=== PATIENT | male | born 1970 | race Caucasian/White ===

== ENCOUNTER 2016-05-03 18:24 | Observation (INO) | payer SELFPAY ==
[~2016-05-03 18:24] MED LIST: NAPR550 PO; PENI500T PO; Z.0.NO CURRENT MEDS
[2016-05-03 18:26] VITALS: BP 126/76; PULSE 72; RESP 15; TEMP 98.2; O2SAT 98
[2016-05-03 19:15] LABS: MEAN CORPUSCULAR HGB CONC 36.2 % (32.0-36.0)
[2016-05-03] MEDS ORDERED: SODIUM CHLORIDE 0.9% FLUSH 10 ML FLUSH IVF PRN (19:15)
[2016-05-03 19:57] VITALS: O2SAT 97
--- NOTE | 2016-05-03 20:08 | PD ---
HPI Chief Complaint: Chest Pain Time Seen by Provider: 20:08 Travel History International Travel<30 days: No Contact w/Intl Traveler<30days: No Traveled to known affect area: No History of Present Illness HPI 45-year-old male presents to the emergency department for evaluation of left anterior chest pain for 2 weeks. Patient states that the pain was intermittent for the past week and a half. States that it became more persistent and 5 days ago he was seen at [facility] for the chest pain. States he had an x-ray and lab work that they told him was negative and he was discharged from the emergency department. States that over the past 2 days he's had worsening constant left anterior chest pain. Describes it as a pressure but now he is also having a sharp pain. States that today while at work he was exerting himself by walking around and began to have crushing chest pain with associated lightheadedness, nausea and diaphoresis. States that when he rested these symptoms resolved. States that he still has the chest pain but it has greatly improved. Denies any history of heart disease or SC. He has never had a stress test or heart catheterization. He does have a smoking history of approximately 30 years. No other complaints. PFSH Past Medical History Medical History: Denies Significant Hx Diminished Hearing: No Immunizations Current: Yes Past Surgical History Surgical History: No Previous Surgery Social History Alcohol Use: No Tobacco Use: No Substance Use: No Allergies-Medications (Allergen,Severity, Reaction): Coded Allergies: No Known Allergies (Verified , 05/03/16) Reported Meds & Prescriptions Reported Meds & Active Scripts Active Review of Systems Except as stated in HPI: all other systems reviewed are Neg Physical Exam Narrative GENERAL: Well-nourished and well-developed pleasant patient in no acute distress who is nontoxic appearing. SKIN: Warm and dry. HEAD: Normocephalic and atraumatic. EYES: No injection, drainage, or hyphema noted. PERRLA. EOMI. ENT: No nasal drainage noted. Oropharynx is clear. NECK: Supple and the trachea is midline. CARDIOVASCULAR: Regular rate and rhythm. RESPIRATORY: Breath sounds are equal bilaterally with no accessory muscle use, wheezing, rhonchi, or crackles. GASTROINTESTINAL: Abdomen is soft, non-tender, and nondistended. MUSCULOSKELETAL: No obvious deformities, swelling, cyanosis, or ecchymosis is present throughout the upper and lower extremities. Patient has full range of motion without any signs of neurovascular compromise. NEUROLOGICAL: Awake, alert, and oriented. Normal speech and gait. Cranial nerves are grossly intact. Data Data Last Documented VS Vital Signs Date Time Temp Pulse Resp B/P Pulse Ox O2 Delivery O2 Flow Rate FiO2 05/03/16 20:27 72 15 128/84 05/03/16 19:57 97 Room Air 05/03/16 18:26 98.2 Orders Electrocardiogram (05/03/16 19:14) Ckmb (Isoenzyme) Profile (05/03/16 19:14) Complete Blood Count With Diff (05/03/16 19:14) Comprehensive Metabolic Panel (05/03/16 19:14) Magnesium (Mg) (05/03/16 19:14) Prothrombin Time / Inr (Pt) (05/03/16 19:14) Act Partial Throm Time (Ptt) (05/03/16 19:14) Troponin I (05/03/16 19:14) Chest, Single Ap (05/03/16 19:14) Ecg Monitoring (05/03/16 19:14) Bilateral Bp Monitoring (05/03/16 19:14) Iv Access Insert/Monitor (05/03/16 19:14) Oximetry (05/03/16 19:14) Sodium Chloride 0.9% Flush (Ns Flush) (05/03/16 19:15) Nitroglycerin Sl (Nitrostat Sl) (05/03/16 20:15) Admit Order (Ed Use Only) (05/03/16 20:48) Labs Laboratory Tests Test 05/03/16 19:35 White Blood Count 7.8 TH/MM3 Red Blood Count 4.41 MIL/MM3 Hemoglobin 14.7 GM/DL Hematocrit 40.5 % Mean Corpuscular Volume 91.9 FL Mean Corpuscular Hemoglobin 33.3 PG Mean Corpuscular Hemoglobin 36.2 % Concent Red Cell Distribution Width 13.5 % Platelet Count 183 TH/MM3 Mean Platelet Volume 8.7 FL Neutrophils (%) (Auto) 66.1 % Lymphocytes (%) (Auto) 22.6 % Monocytes (%) (Auto) 8.8 % Eosinophils (%) (Auto) 1.7 % Basophils (%) (Auto) 0.8 % Neutrophils # (Auto) 5.2 TH/MM3 Lymphocytes # (Auto) 1.8 TH/MM3 Monocytes # (Auto) 0.7 TH/MM3 Eosinophils # (Auto) 0.1 TH/MM3 Basophils # (Auto) 0.1 TH/MM3 CBC Comment DIFF FINAL Differential Comment Prothrombin Time 11.8 SEC Prothromb Time International 1.1 RATIO Ratio Activated Partial 28.2 SEC Thromboplast Time Sodium Level 140 MEQ/L Potassium Level 3.6 MEQ/L Chloride Level 107 MEQ/L Carbon Dioxide Level 24.4 MEQ/L Anion Gap 9 MEQ/L Blood Urea Nitrogen 16 MG/DL Creatinine 0.86 MG/DL Estimat Glomerular Filtration 95 ML/MIN Rate Random Glucose 130 MG/DL Calcium Level 8.8 MG/DL Magnesium Level 2.0 MG/DL Total Bilirubin 0.6 MG/DL Aspartate Amino Transf 54 U/L (AST/SGOT) Alanine Aminotransferase 112 U/L (ALT/SGPT) Alkaline Phosphatase 67 U/L Total Creatine Kinase 61 U/L Troponin I LESS THAN 0.02 NG/ML Total Protein 7.1 GM/DL Albumin 3.6 GM/DL [facility] Medical Decision Making Medical Screen Exam Complete: Yes Emergency Medical Condition: Yes Differential Diagnosis ACS versus chest wall pain versus pleurisy versus anxiety Narrative Course 45-year-old male presents to the emergency department for evaluation of chest pain. Patient is afebrile, vital signs are stable. Physical examination is essentially unremarkable. Patient is placed on cardiac telemetry and pulse oximetry monitoring. IV access is obtained, labs were drawn and sent. EKG shows normal sinus rhythm with no acute ST elevations or depressions. Patient took an aspirin 325 mg earlier today. He is administered nitroglycerin tablet sublingually for chest pain. CBC is unremarkable. CMP is unremarkable. Troponin is less than 0.02. Chest x-ray is negative for any Known allergies. Patient has a remained stable while here in the emergency department. Patient will be admitted to chest pain center for repeat cardiac enzymes, EKGs and possible stress testing. Diagnosis Primary Impression: Chest pain Qualified Code: R07.9 - Chest pain, unspecified type Admitting Information Admitting Physician Requests: Jackeline Miller May 03, 2016 20:08
[2016-05-03 20:10] LABS: AUTOMATED NEUTROPHIL # 5.2 TH/MM3 (1.8-7.7); BASOPHIL # 0.1 TH/MM3 (0-0.2); BASOPHIL % 0.8 % (0.0-2.0); EOSINOPHIL # 0.1 TH/MM3 (0-0.4); EOSINOPHIL % 1.7 % (0.0-4.0); HEMATOCRIT 40.5 % (39.0-51.0); LYMPH % 22.6 % (9.0-44.0); LYMPHOCYTE # 1.8 TH/MM3 (1.0-4.8); MEAN CELL VOLUME 91.9 FL (80.0-100.0); MEAN CORPUSCULAR HEMOGLOBIN 33.3 PG (27.0-34.0); MONO % 8.8 % (0.0-8.0); NEUT % 66.1 % (16.0-70.0); PLATELET COUNT 183 TH/MM3 (150-450); RED BLOOD COUNT 4.41 MIL/MM3 (4.50-5.90); RED CELL DISTRIBUTION WIDTH 13.5 % (11.6-17.2); WHITE BLOOD COUNT 7.8 TH/MM3 (4.0-11.0)
[2016-05-03] MEDS: NITROGLYCERIN 0.4 MG SL 25 TABS/BTL SL SCH ×2 (20:18→20:20)
[2016-05-03 20:23] LABS: APTT (PATIENT) 28.2 SEC (24.3-30.1); INTERNATIONAL NORMALIZED RATIO 1.1 RATIO; PROTHROMBIN TIME - PATIENT 11.8 SEC (9.8-11.6)
[2016-05-03 20:25] LABS: HEMO FLAGS DIFF FINAL
[2016-05-03 20:27] VITALS: BP 128/84; PULSE 72; RESP 15
[2016-05-03 20:30] LABS: ANION GAP 9 MEQ/L (5-15); AST (GOT) 54 U/L (15-37); BICARBONATE 24.4 MEQ/L (21.0-32.0); BLOOD UREA NITROGEN 16 MG/DL (7-18); CHLORIDE 107 MEQ/L (98-107); GLOMERULAR FILTRATION RATE 95 ML/MIN (>89); POTASSIUM 3.6 MEQ/L (3.5-5.1); SODIUM (NA) 140 MEQ/L (136-145)
[2016-05-03 20:36] LABS: ALKALINE PHOSPHATASE 67 U/L (45-117); ALT (GPT) 112 U/L (12-78); TOTAL BILIRUBIN ADULT 0.6 MG/DL (0.2-1.0)
--- NOTE | 2016-05-03 20:38 | RADRPT ---
EXAM DATE/TIME: 05/03/2016 19:42 [facility] COMPARISON: No previous studies available for comparison. INDICATIONS : Chest pain, shortness of breath. MEDICAL HISTORY : Smoker. SURGICAL HISTORY : None. ENCOUNTER: Initial ACUITY: 2 weeks PAIN SCORE: 10/10 LOCATION: Left chest FINDINGS: A single view of the chest demonstrates the lungs to be symmetrically aerated without evidence of mas s, infiltrate or effusion. The cardiomediastinal contours are unremarkable. Osseous structures are intact. CONCLUSION: No acute disease. Vikash Salmeron MD on May 03, 2016 at 20:36 Board Certified Radiologist. This report was verified electronically.
[2016-05-03 20:39] LABS: CREATINE KINASE 61 U/L (39-308)
[2016-05-03 20:56] VITALS: O2SAT 98
[2016-05-03] MEDS ORDERED: ACETAMINOPHEN 500 MG CPLT PO PRN (21:00)
[2016-05-03] MEDS ORDERED: SODIUM CHLORIDE 0.9% FLUSH 10 ML FLUSH IV FLUSH PRN (21:00)
[2016-05-03 21:56] VITALS: BP 107/73; PULSE 70; RESP 18; O2SAT 99
[2016-05-03 22:09] VITALS: BP 128/63; PULSE 55; RESP 20; TEMP 97.5; O2SAT 96
--- NOTE | 2016-05-03 22:21 | EKG ---
Date Performed: 05/03/2016 Time Performed: 19:38:09 PTAGE: 45 years EKG: Sinus rhythm NORMAL ECG NO PREVIOUS TRACING DOCTOR: Lokesh Martinez Interpretating Date/Time 05/03/2016 22:19:04
[2016-05-03 22:46] LABS: CREATINE KINASE 61 U/L (39-308)
[2016-05-03] MEDS: SODIUM CHLOR 0.9% 1000 ML INJ 1,000 ML IV SCH (23:08)
[2016-05-04 00:22] VITALS: PULSE 52
[2016-05-04 00:31] VITALS: BP 99/55; PULSE 55; RESP 20; TEMP 98.3; O2SAT 95
[2016-05-04 02:08] LABS: CREATINE KINASE 47 U/L (39-308)
[2016-05-04 04:56] VITALS: BP 100/63; PULSE 50; RESP 20; TEMP 97.4; O2SAT 95
[2016-05-04] MEDS: SODIUM CHLOR 0.9% 1000 ML INJ 1,000 ML IV SCH (06:15)
[2016-05-04 07:31] VITALS: BP 112/69; PULSE 54; RESP 19; TEMP 97.6; O2SAT 95
--- NOTE | 2016-05-04 09:09 | HHI.HP ---
HPI Primary Care Physician No Primary Care Physician Chief Complaint Chest pain History of Present Illness This is a 45-year-old male that presents to ED with a clean of a constant central chest pressure as been present for 2 weeks. Intermittently will have a sharp twinge a Regino with activity but also at rest. He has never had issues like this in the past. He states he was in [facility] about 5 days ago for the same and was discharged from the ER after some labs and EKG. He states over last 2 days the discomforts have become more intense. He has at times had some shortness of breath. No nausea or diaphoresis. Cannot recall having prior cardiac workup. Review of Systems General: Patient denies fevers, chills recent, and recent travel HEENT: Patient denies headache, sore throat, difficulty swallowing. Cardiovascular: Has the chest discomfort as mentioned above. Denies sensation of heart beating rapidly or irregularly. No syncope. Respiratory: Patient has had intermittent shortness of breath. Denies inspirational chest discomfort. Denies coughing wheezing or hemoptysis. GI: Patient denies nausea, vomiting, diarrhea, abdominal pain, bloody stools. Musculoskeletal: Patient denies joint pain or edema. Denies calf pain or edema. Neurovascular: Patient denies numbness, tingling, weakness in extremities. Denies headache. Endocrine: Denies polyuria and polydipsia. Hematologic: Denies easy bruising. Skin: Denies rash or itching. Past Family Social History Allergies: Coded Allergies: No Known Allergies (Verified , 05/03/16) Past Medical History Denies hypertension, hyperlipidemia, diabetes, and CAD. History of tobacco abuse. Past Surgical History Noncontributory. Reported Medications Reported Meds & Active Scripts Active Active Ordered Medications Current Medications Medications (Trade) Dose Ordered Sig/Davis Route Start Time Stop Time Status Last Admin Sodium Chloride 2 ml 2 ml UNSCH PRN IVF 05/03/16 19:15 (NS 1000 ml Inj) 1,000 ml @ 100 mls/hr Q10H IV 05/03/16 20:51 05/04/16 06:15 (NS Flush) 2 ml UNSCH PRN IV FLUSH 05/03/16 21:00 (Tylenol) 500 mg Q4H PRN PO 05/03/16 21:00 05/03/16 21:54 Family History Denies family history of CAD. Social History Patient quit smoking cigarettes 2 days ago but prior that he smoked one pack of cigarettes daily for approximately 30 years. Denies alcohol or illicit drugs. Physical Exam Vital Signs Vital Signs Date Time Temp Pulse Resp B/P Pulse Ox O2 Delivery O2 Flow Rate FiO2 05/04/16 07:31 97.6 54 19 112/69 95 05/04/16 04:56 97.4 50 20 100/63 95 05/04/16 00:31 98.3 55 20 99/55 95 05/04/16 00:22 52 05/03/16 22:09 97.5 55 20 128/63 96 05/03/16 21:56 70 18 107/73 99 05/03/16 20:56 98 05/03/16 20:27 72 15 128/84 05/03/16 19:57 97 Room Air 05/03/16 18:26 98.2 72 15 126/76 98 Physical Exam GENERAL: This is a well-nourished, well-developed patient, in no apparent distress. Patient speaks in clear complete sentences. Patient is pleasant. HEENT: Head is atraumatic and normocephalic. Neck is supple without lymphadenopathy and trachea is midline. No JVD or carotid bruits. CARDIOVASCULAR: Regular rate and rhythm without murmurs, gallops, or rubs. RESPIRATORY: Clear to auscultation. Breath sounds equal bilaterally. No wheezes , rales, or rhonchi. Chest wall is nontender. No use of accessory muscles. GASTROINTESTINAL: Abdomen is nontender, nondistended. Abdomen soft. No obvious pulsatile mass or bruit. No CVA tenderness. Strong femoral pulses bilaterally. Normal bowel sounds in all quadrants. MUSCULOSKELETAL: Patient is moving upper and lower extremities freely. No calf tenderness or edema, no Homans sign. Strong pulses in upper and lower extremities. NEUROLOGICAL: Patient is alert and oriented. Cranial nerves 2-12 are grossly intact. No focal deficits and speech is clear. SKIN: No rash and turgor is normal. Laboratory Laboratory Tests Test 05/03/16 05/03/16 05/04/16 19:35 22:00 01:30 White Blood Count 7.8 Red Blood Count 4.41 Hemoglobin 14.7 Hematocrit 40.5 Mean Corpuscular Volume 91.9 Mean Corpuscular Hemoglobin 33.3 Mean Corpuscular Hemoglobin 36.2 Concent Red Cell Distribution Width 13.5 Platelet Count 183 Mean Platelet Volume 8.7 Neutrophils (%) (Auto) 66.1 Lymphocytes (%) (Auto) 22.6 Monocytes (%) (Auto) 8.8 Eosinophils (%) (Auto) 1.7 Basophils (%) (Auto) 0.8 Neutrophils # (Auto) 5.2 Lymphocytes # (Auto) 1.8 Monocytes # (Auto) 0.7 Eosinophils # (Auto) 0.1 Basophils # (Auto) 0.1 CBC Comment DIFF FINAL Differential Comment Prothrombin Time 11.8 Prothromb Time International 1.1 Ratio Activated Partial 28.2 Thromboplast Time Sodium Level 140 Potassium Level 3.6 Chloride Level 107 Carbon Dioxide Level 24.4 Anion Gap 9 Blood Urea Nitrogen 16 Creatinine 0.86 Estimat Glomerular Filtration 95 Rate Random Glucose 130 Calcium Level 8.8 Magnesium Level 2.0 Total Bilirubin 0.6 Aspartate Amino Transf 54 (AST/SGOT) Alanine Aminotransferase 112 (ALT/SGPT) Alkaline Phosphatase 67 Total Creatine Kinase 61 61 47 Troponin I LESS THAN 0.02 LESS THAN 0.02 LESS THAN 0.02 Total Protein 7.1 Albumin 3.6 Result Diagram: 05/03/16193405/03/161934 Imaging Last 24 hours Impressions Chest X-Ray 05/03/161913 Signed Impressions: Service Date/Time: Tuesday, May 03, 2016 19:42 - CONCLUSION: No acute disease. Vikash Salmeron MD Course EKGs have sinus rhythm without significant ST segment depressions or elevations. Assessment and Plan Assessment and Plan * Chest pain: Patient had serial cardiac enzymes and EKGs for ruling out purposes. He has been seen by Dr. Harry Long of cardiology in the chest pain center and will undergo a Jaiden protocol ETT. He will likely be discharged home if the stress test were to be nonischemic. * Tobacco abuse: Continue smoking cessation. Philip Nunez May 04, 2016 09:09
[2016-05-04 11:16] VITALS: BP 127/79; PULSE 50; RESP 18; TEMP 97.8; O2SAT 97
--- NOTE | 2016-05-04 13:36 | EKG ---
Date Performed: 05/04/2016 Time Performed: 02:12:21 PTAGE: 45 years EKG: SINUS BRADYCARDIA BORDERLINE ECG PREVIOUS TRACING : 05/03/2016 22.16 Since previous tracing, no significant change noted DOCTOR: Harry Long Interpretating Date/Time 05/04/2016 13:34:56
--- NOTE | 2016-05-04 13:38 | EKG ---
Date Performed: 05/03/2016 Time Performed: 22:16:56 PTAGE: 45 years EKG: SINUS BRADYCARDIA BORDERLINE ECG PREVIOUS TRACING : 05/03/2016 19.38 Since previous tracing, no significant change noted DOCTOR: Harry Long Interpretating Date/Time 05/04/2016 13:37:19
--- NOTE | 2016-05-04 13:50 | TR ---
Date Performed: 05/04/2016 Time Performed: 09:04:24 DOCTOR: Harry Long DRUG LIST: CLINICAL HISTORY: REASON FOR TEST: REASON FOR ENDING: OBSERVATION: CONCLUSION: CONSTANT CHEST PRESSURE DID NOT WORSEN. TEST STOPPED AFTER EXCEEDING GOAL HR SECONDA RY TO SOB AND LEG FATIGUE.Maximum GD=385 % Max HR Achieved=90.0% Maximum PT=867/84 Total Exercise Napoleno e=9:17 COMMENTS: ST depression noted at peak exercise with resolution within 1 minute of rest. this may reflect a falsely positive test. Will epeat with nuclear imaging
--- NOTE | 2016-05-04 14:52 | RADRPT ---
EXAM DATE/TIME: 05/04/2016 11:51 [facility] COMPARISON: No previous studies available for comparison. INDICATIONS : Left chest pain with lightheadedness, nausea and diaphoresis. Angina DOSE: 25.4 mCi Tc99m Myoview at stress 8.7 mCi Tc99m Myoview at rest REST HEART RATE: 49 BPM TARGET HEART RATE: 147 BPM MAX HEART RATE: 162 BPM REST BLOOD PRESSURE: 110/78 mmHg MAX BLOOD PRESSURE: 134/92 mmHg EJECTION FRACTION: 60% MEDICAL HISTORY : None SURGICAL HISTORY : None. ENCOUNTER: Initial ACUITY: 2 weeks PAIN SCALE: 7/10 LOCATION: Left chest TECHNIQUE: The patient underwent upright treadmill exercise in the chest pain center. Continuous ECG tracing wa s monitored during stress. Gated SPECT imaging was performed after stress, and conventional SPECT im aging was performed at rest. The examination was performed on a SPECT/CT scanner, both attenuation-c orrected and non-corrected datasets were reviewed. FINDINGS: DISTRIBUTION: The maximum perfused segment at stress is in the inferior wall. PERFUSION STUDY: The pattern of perfusion at stress shows fixed diminished perfusion to the low inferior wall extendin g into the apex. Relative diminished perfusion to the low anterior wall as well. There is approximate ly 20% redistribution in segments of the lateral wall. GATED STUDY: There is intact wall motion and thickening without hypokinetic or dyskinetic segments. CONCLUSION: 1. Scintigraphic findings concerning for some degree of ischemia in the circumflex distribution. 2. Possible old infarcts in the low anterior and posterior weiss extending into the apex. 3. Adequate wall motion throughout with an ejection fraction of 60% RISK CATEGORY: Intermediate (1-3% Annual Mortality Rate) Felipe Lanier MD on May 04, 2016 at 14:43 Board Certified Radiologist. This report was verified electronically.
[2016-05-04 15:08] VITALS: PULSE 61
[2016-05-04] MEDS ORDERED: ASPIRIN 325 MG TAB PO SCH (15:15)
[2016-05-04] MEDS ORDERED: HEPARIN-NS/PF INJ 500 ML ONE (15:36)
[2016-05-04] MEDS ORDERED: MIDAZOLAM HCL 2 MG/2 ML VIAL ONE ×2 (15:37→16:02)
--- NOTE | 2016-05-04 15:53 | MB ---
cc: KASSI CASTRO DATE OF CONSULTATION: 05/04/2016 REASON FOR CONSULTATION: Evaluation for possible cardiac cath. HISTORY OF PRESENT ILLNESS: John Olea is a 45 year-old man with no prior history of cardiac disease. He has been having central chest pressure the last two weeks. It radiates to the left shoulder. It is worse with activity. It has been more or less constant. He has undergone a nuclear stress test. He had significant ST changes and SPECT imaging is abnormal as well. He was evaluated for chest pain at [facility] about five days ago and was sent home without a stress test. His cardiac risk factors are notable for longstanding smoking. He does not have hypertension or diabetes and he knows that his lipid status has not been fully assessed. There is no family history of coronary artery disease. PAST MEDICAL HISTORY: Unremarkable. PAST SURGICAL HISTORY: Noncontributory. SOCIAL HISTORY Notable for smoking. He has smoked about a pack a day for the last 30 years. REVIEW OF SYSTEMS: Denies any bleeding. Denies any GI problems, kidney problems, lung problems. The remainder of the review of systems is negative. PHYSICAL EXAMINATION Well-developed, well-nourished white male in no acute distress. Vital signs: Charted. HEENT: Exam unremarkable. Neck: No JVD, no bruits. Chest: Clear to auscultation. Cardiac: Exam shows normal first and second heart sounds, regular rate and rhythm. No murmurs or gallops appreciated. Abdomen: Soft. No masses, no organomegaly. Extremities: No clubbing, cyanosis or edema. Neurologically: Alert and oriented with normal mood and affect. EKGs show sinus bradycardia, no acute ST-T wave changes. LABORATORY DATA: He has had three negative troponins. Hematocrit is 40.5, creatinine is 0.6. SPECT imaging is notable for possible old infarcts, low anterior and posterior wall extending into the apex, and ischemia in the circumflex distribution. IMPRESSION 45-year-old smoker with chest pressure that I think is very compatible with ischemia and has now has significant abnormalities seen on stress test, with prominent ST depression as well as nuclear imaging defects. PLAN The patient is requesting cardiac catheterization. I think this is completely appropriate with the current findings. I explained that if we find significant disease, it will be either medical therapy, percutaneous intervention or bypass surgery. I explained that there are risks to the procedure because it is invasive including the risk of stroke, heart attack, , etc. He is agreeable to proceed. The procedure will be done this afternoon. MD HARRIET Corrales/BEATRICE /3:19 PM /3:26 PM
[2016-05-04] MEDS ORDERED: oxyCODONE/ACETAMINOPHEN 5 MG/325 MG TAB PO PRN (16:45)
[2016-05-04] MEDS ORDERED: ONDANSETRON HCL 4 MG/2 ML VIAL IV PRN (16:45)
--- NOTE | 2016-05-04 16:48 | HHI.PR ---
Subjective Remarks resting comfortably with no distress. had cardiac cath. Objective Vitals Vital Signs Date Time Temp Pulse Resp B/P Pulse Ox O2 Delivery O2 Flow Rate FiO2 05/04/16 15:08 61 05/04/16 11:16 97.8 50 18 127/79 97 05/04/16 07:31 97.6 54 19 112/69 95 05/04/16 04:56 97.4 50 20 100/63 95 05/04/16 00:31 98.3 55 20 99/55 95 05/04/16 00:22 52 05/03/16 22:09 97.5 55 20 128/63 96 05/03/16 21:56 70 18 107/73 99 05/03/16 20:56 98 05/03/16 20:27 72 15 128/84 05/03/16 19:57 97 Room Air 05/03/16 18:26 98.2 72 15 126/76 98 I/O 05/03/16 05/03/16 05/03/16 05/04/16 05/04/16 05/04/16 07:00 15:00 23:00 07:00 15:00 23:00 Intake Total 150 ml Balance 150 ml Intake Oral 150 ml # Voids 1 Result Diagram: 05/03/16193405/03/161934 Imaging Last Impressions Myocardial Perfusion Scan Nuc Med 05/04/16 0000 Signed Impressions: Service Date/Time: Wednesday, May 04, 2016 11:51 - CONCLUSION: 1. Scintigraphic findings concerning for some degree of ischemia in the circumflex distribution. 2. Possible old infarcts in the low anterior and posterior weiss extending into the apex. 3. Adequate wall motion throughout with an ejection fraction of 60%% RISK CATEGORY: Intermediate (1-3%% Annual Mortality Rate) Felipe Lanier MD Chest X-Ray 05/03/16 1914 Signed Impressions: Service Date/Time: Tuesday, May 03, 2016 19:42 - CONCLUSION: No acute disease. Vikash Salmeron MD Objective Remarks GENERAL: This is a well-nourished, well-developed patient, in no apparent distress. CARDIOVASCULAR: Regular rate and regular rhythm without murmurs, gallops, or rubs. chest: Clear to auscultation. Breath sounds equal bilaterally. No wheezes, rales , or rhonchi. chest is tender to touch. GASTROINTESTINAL: Abdomen soft, non-tender, nondistended. Normal, active bowel sounds MUSCULOSKELETAL: Extremities without clubbing, cyanosis, or edema. NEURO: Alert & Oriented x4 to person, place, time, situation. Moves all ext x4 Procedures cardiac cath Medications and IVs Current Medications Sodium Chloride (NS Flush) 2 ml UNSCH PRN IVF FLUSH AFTER USING IV ACCESS; Start 05/03/16 at 19:15 Nitroglycerin 0.4 mg 0.4 mg Q5M SL Last administered on 05/03/16 20:18; Start 05/03/16 at 20:15; Stop 05/03/16 at 20:26; Status DC Sodium Chloride (NS 1000 ml Inj) 1,000 ml @ 100 mls/hr Q10H IV Last administered on 05/04/16 06:15; Start 05/03/16 at 20:51 Sodium Chloride (NS Flush) 2 ml UNSCH PRN IV FLUSH FLUSH AFTER USING IV ACCESS ; Start 05/03/16 at 21:00 Acetaminophen (Tylenol) 500 mg Q4H PRN PO HEADACHE Last administered on 21:54; Start 05/03/16 at 21:00 Atorvastatin Calcium (Lipitor) 20 mg DAILY PO ; Start 05/05/16 at 09:00 Metoprolol Tartrate (Lopressor) 25 mg Q12HR PO ; Start 05/04/16 at 21:00 Nitroglycerin (Nitroglycerin 2% Oint) 1 inch Q6HR TOPICAL ; Start 05/04/16 at 18 :00 Aspirin 325 mg 325 mg DAILY PO ; Start 05/04/16 at 15:15 Heparin Sodium/ Sodium Chloride (Heparin-NS/Pf Inj) 500 ml @ As Directed STK- MED ONCE .ROUTE Last administered on 05/04/16 15:36; Start 05/04/16 at 15:36; Stop 05/04/16 at 15:37; Status DC Midazolam HCl (Versed Inj) 2 mg STK-MED ONCE .ROUTE Last administered on 15:37; Start 05/04/16 at 15:37; Stop 05/04/16 at 15:38; Status DC Midazolam HCl (Versed Inj) 2 mg STK-MED ONCE .ROUTE Last administered on t 16:02; Start 05/04/16 at 16:02; Stop 05/04/16 at 16:03; Status DC A/P Assessment and Plan A/P - chest pain with abnormal stress test. serial enzymes negative. s/p cardiac cath with no ischemia- f/u with his PCP as outpatient. d/w the RN and at the bedside. -elevated LFT's- f/u as outpatient; this was d/w the patient in detail. Discharge Planning dc home this evening. f/u with pcp. d/w the patient, RN and . Althea Leggett MD May 04, 2016 16:48
--- NOTE | 2016-05-04 16:57 | HHI.DCPOC ---
Discharge Care Plan Diagnosis: (1) Chest pain Your Health Problems Are: Chest Pain Goals to Promote Your Health * To prevent worsening of your condition and complications * To maintain your health at the optimal level Directions to Meet Your Goals Take your medications as prescribed Follow your dietary instruction Follow activity as directed Keep your appointments as scheduled Take your immunizations and boosters as scheduled If your symptoms worsen call your PCP, if no PCP go to Urgent Care Center or Emergency Room Smoking is Dangerous to Your Health. Avoid second hand smoke Call the 24-hour hour crisis hotline for domestic abuse at Althea Leggett MD May 04, 2016 16:57
[2016-05-04] MEDS ORDERED: SODIUM CHLOR 0.9% 1000 ML INJ 1,000 ML IV SCH (17:00)
--- NOTE | 2016-05-04 17:45 | MA ---
cc: KASSI CASTRO M.D. DATE: 05/04/2016 PROCEDURE PERFORMED: Left heart catheterization, left ventriculography, coronary angiography, right femoral angiography with Angio-Seal placement. DESCRIPTION OF PROCEDURE The patient was brought to the cardiac lab technician in a fasting state. The right groin was prepped and draped sterile fashion. Using 1% lidocaine for local anesthesia a 6-Irish sheath was inserted in the right femoral artery. Next, left ventricular pressure was recorded using a pigtail catheter followed by left ventriculography and then a pullback. Coronary angiography was then completed using a left 4 Joy catheter and a 3D RC catheter. At the end of the procedure, angiography was obtained of the right femoral artery followed by uncomplicated Angio-Seal placement. There were no complications. FINDINGS Hemodynamics. Please see lab technician data flow sheet, hemodynamics are normal. Left ventriculography. Left ventriculography shows normal left ventricular function. EF is about 65%. Coronary angiography. Coronary circulation is right-dominant. All three coronaries appear normal. CONCLUSION Normal cardiac catheterization. No findings to explain his chest pain or abnormal stress test findings. RECOMMENDATIONS: Recommendations are for the patient to have a workup for noncardiac sources of chest pain. I will sign off. MD HARRIET Corrales/BEATRICE /4:32 PM /5:28 PM
[2016-05-04] MEDS ORDERED: NITROGLYCERIN 2% OINT 1 GM PACKET TOPICAL SCH (18:00)
[2016-05-04] MEDS ORDERED: METOPROLOL TARTRATE 25 MG TAB PO SCH (21:00)
[2016-05-05] MEDS ORDERED: ATORVASTATIN 20 MG TAB PO SCH (09:00)
--- NOTE | 2016-05-05 21:43 | TR ---
Date Performed: 05/04/2016 Time Performed: 13:16:37 DOCTOR: Didi Cassidy DRUG LIST: CLINICAL HISTORY: REASON FOR TEST: REASON FOR ENDING: OBSERVATION: CONCLUSION: NUC ETT VIRGILIO PROTOCOL. CONSTANT CHEST DISCOMFORT DID NOT WORSEN. MILD SOB.Maximum H R=162 Maximum NO=368/88 Total Exercise Time=9:31 COMMENTS:
== END 2016-05-04 18:45 | disposition home or self-care (01) ==
LOC: NEPC 18:24 → NEDA 20:51 → NEPGCP 22:02
PROVIDERS: ADMIT Internal Medicine; ATTEND Internal Medicine
DX: R07.9 Chest pain, unspecified (principal); R11.0 Nausea; R61 Generalized hyperhidrosis; R42 Dizziness and giddiness; R06.02 Shortness of breath; F17.210 Nicotine dependence, cigarettes, uncomplicated; R94.39 Abnormal result of other cardiovascular function study
CPT/HCPCS: 71010; 78452; 80053; 82550; 83735; 84484; 85025; 85610; 85730; 93005; 93017; 93458; 99285; A9502; C1769; C1893; G0378; J1644; J2250; J7030